=== PATIENT | male | born 1945 | race Caucasian/White ===

== ENCOUNTER 2016-06-04 11:43 | Observation (INO) | payer OTHER ==
--- NOTE | 2016-05-12 12:53 | PAT Medication Instructions ---
Service Date May 12, 2016. Current Home Medication List Aspirin (Aspirin Ec), 325 MG PO PRN Naproxen (Aleve), 440 MG PO QAM Medication Instructions For Your Scheduled Surgery - Hold the following medications 10 days prior to surgery per surgeon instructions: Aspirin (Aspirin Ec), 325 MG PO PRN Naproxen (Aleve), 440 MG PO QAM - Take the following medications the morning of surgery with a sip of water: Tylenol (if needed) - Take the following medications as scheduled the night before surgery: Tylenol (if needed) If you have any questions please call us at [phone] or [phone] ( [place]) or [phone]
[2016-05-12 13:16] LABS: BASO % 0.3 %; BASO ABS # 0.02 K/uL (0-0.2); COMPLETE YES; EOS % 4.3 %; HEMATOCRIT 44.4 % (42-52); IG% 0.1 %; LYMPH % 23.9 %; MEAN CELL VOLUME 90.8 fL (80-100); MEAN CORPUSCULAR HEMOGLOBIN 30.7 pg (25-34); MEAN CORPUSCULAR HGB CONC 33.8 g/dl (32-36); MEAN PLATELET VOLUME 10.1 fL (7.4-10.4); MONO % 8.1 %; NEUT % 63.3 %; PLATELET COUNT 244 K/uL (130-400); RED BLOOD COUNT 4.89 M/uL (4.7-6.1); WHITE BLOOD COUNT 7.95 K/uL (4.8-10.8)
[2016-05-12 13:42] LABS: PROTHROMBIN TIME (PATIENT) 10.2 SECONDS (9.0-12.0)
[2016-05-12 13:49] LABS: BUN/CREATININE RATIO 21.4 (10-20); CALCIUM 9.1 mg/dl (8.5-10.1); CREATININE 0.95 mg/dl (0.60-1.40); POTASSIUM 4.9 mmol/L (3.5-5.1)
--- NOTE | 2016-05-29 09:18 | HISTORY & PHYSICAL EXAMINATION ---
DATE OF ADMISSION: 06/04/2016 CHIEF COMPLAINT: Right ankle pain, discomfort and instability. HISTORY OF PRESENT ILLNESS: This 70-year-old gentleman has a 2- to 3-year history of increasing right ankle pain, discomfort and instability. No trauma and no history of trauma. It just gradually got worse over time. He has resorted to using a cane as a result. He describes global discomfort. It rolls on him regularly. He has tried some bracing but continues to give him problems. He now presents for surgical treatment. PAST MEDICAL HISTORY: Noncontributory. PREVIOUS SURGERIES: None. ALLERGIES: No known drug allergies. CURRENT MEDICINE: None. SOCIAL HISTORY: A 70-year-old male. He is from [place]. . Three children. Rare alcohol intake. FAMILY HISTORY: Heart disease and diabetes. REVIEW OF SYSTEMS: Negative for diabetes, neurologic problems, vascular problems, bleeding disorders. No chest pain, no shortness of breath. No evidence of DVT or PE. No history of neuropathy. PHYSICAL EXAMINATION: GENERAL: Reveals a healthy, pleasant middle-aged male. He looks to be in good health. HEENT: Benign. NECK: Supple. No lymphadenopathy. LUNGS: Clear to auscultation. HEART: Regular rate and rhythm. ABDOMEN: Soft, nontender, nondistended. EXTREMITIES: Grossly neurovascularly intact except as follows. Examination of the right ankle reveals the patient ambulates with the use of a cane. He steps on his leg and walks on it kind of like a pegleg with his knee straight. He has got varus alignment to his ankle. He can dorsiflex and plantarflex his foot slightly. He can dorsiflex to neutral, plantar flex to about 10 degrees. NEUROLOGIC: Intact. X-RAYS: X-rays of the ankle were reviewed. It shows a fixed varus deformity to his ankle. He has got complete loss of his medial joint space. He has got bony hypertrophy both medially and laterally. He has got some extra ossicles around his ankle joint. He does have some degenerative changes in the talonavicular joint. ASSESSMENT: A 70-year-old male with advanced right ankle degenerative joint disease. He has got a fixed varus deformity to his ankle. The etiology of this is unclear. He is not diabetic and no real signs of neuropathy. PLAN: We talked about treatment including injection and bracing. This has not really been effective for him and he would like to have this fixed. I think the most predictable operation for this gentleman is an ankle arthrodesis. We are going to take him to the operating room and do right ankle arthrodesis. The risks and benefits of this procedure were explained to the patient including but not limited to DVT, PE, , infection, neurological injury, vascular injury, bleeding problem, pain, limited range of motion, stiffness, failure to relieve symptoms, incomplete relief of symptoms, need for further surgery in the future, nonunion, malunion, etc. The patient understands and desires to proceed. Informed consent was obtained. We will keep him overnight for pain control. He will be nonweightbearing for 6 weeks and then weightbearing in a cast for 6 weeks. He did have preoperative workup. EKG was normal. Labs were all normal.
[~2016-06-04] VITALS: Ht 170.2 cm; Wt 88.1 kg
[2016-06-04] VITALS (7 sets, daily range): BP systolic 129–153; BP diastolic 79–95; PULSE 65–93; TEMP 36.4–36.7; O2SAT 94–99; Ht 170.2 cm; Wt 88.1 kg
[~2016-06-04 11:43] MED LIST: ACETAMINOPHEN 500 MG TAB PO SCH; ASPI325T39 PO; ATROPINE SULFATE 0.1 MG/ML 5ML SYR IV PRN; CEFAZOLIN 2000 MG/60 ML D5W 60 ML IV SCH; EpHEDrine SULFATE INJ 50 MG/ML AMP IV PRN; FENTANYL CITRATE INJ 50 MCG/1 ML 2 ML VIAL IV PRN; FENTANYL CITRATE INJ 50 MCG/1 ML 2 ML VIAL ONE; GABAPENTIN 300 MG CAP PO SCH; HYDROmorphone INJ 1 MG/ML SYR IV PRN; LACTATED RINGER'S 1000ML 1,000 ML IV SCH; LACTATED RINGER'S 1000ML IV SCH; MIDAZOLAM HCL 1 MG/ML 2ML VIAL ONE; NAPR1TAB9 PO; ONDANSETRON INJ 2 MG/ML 2 ML VIAL IV PRN; ROPIVACAINE 0.5% 5 MG/ML 30 ML VIAL ONE; SCOPOLAMINE 1.5 MG TDSY TD SCH
[2016-06-04] MEDS ORDERED: ACET325T96 PO (12:05)
--- NOTE | 2016-06-04 14:01 | History & Physical Bridge Note ---
H&P Re-Evaluation Bridge Note: I have examined the patient, reviewed the History & Physical and in the interval since the performance of the History & Physical I have noted the following changes of clinical significance: No changes noted
[2016-06-04] MEDS ORDERED: BUPIVACAINE/EPINEPHRINE 0.5% MPF 1:200,000 30 ML VIAL ONE (14:12)
[2016-06-04] MEDS ORDERED: PROPOFOL IV EMULSION 10 MG/ML 20 ML VIAL IV ONE ×2 (15:44→16:04)
[2016-06-04] MEDS ORDERED: LIDOCAINE HCL 2% 2 ML VIAL (20MG/ML) ONE (15:44)
[2016-06-04] MEDS ORDERED: GLYCOPYRROLATE INJ 0.2 MG/ML VIAL ONE (15:44)
[2016-06-04] MEDS ORDERED: FENTANYL CITRATE INJ 50 MCG/1 ML 2 ML VIAL ONE ×2 (15:44→15:58)
[2016-06-04] MEDS ORDERED: NEOSTIGMINE METHYLSULFATE 5 MG/5 ML SYR ONE (15:44)
[2016-06-04] MEDS ORDERED: ROCURONIUM BROMIDE 10 MG/ML 5 ML VIAL ONE (15:44)
[2016-06-04] MEDS ORDERED: ONDANSETRON INJ 2 MG/ML 2 ML VIAL ONE (15:44)
[2016-06-04] MEDS ORDERED: DEXAMETHASONE SOD INJ 4 MG/ML VIAL ONE (15:44)
--- NOTE | 2016-06-04 16:42 | DIAGNOSTIC IMAGING REPORT ---
Postoperative right ankle RIGHT ANKLE MIN 3 VIEWS ROUTINE CLINICAL HISTORY: RT ANKLE ARTHRODESIS Right TECHNIQUE: Image intensifier COMPARISON STUDY: None FINDINGS: Findings consistent with what appears to be an ankle fusion image intensifier evaluation. Pre-existing distracted fracture of the fibula. IMPRESSION: Distracted fracture fibula. Operative findings consistent with ankle fusion. Electronically signed by: Vijay Lam M.D. 06/04/2016 4:40 PM Dictated Date/Time: 06/04/2016 4:40 PM
--- NOTE | 2016-06-04 16:57 | [facility] Post Operative Brief Note ---
Immediate Operative Summary Operative Date Jun 04, 2016. Pre-Operative Diagnosis Advanced right ankle degenerative joint disease, fixed varus deformity to ankle Post-Operative Diagnosis Advanced right ankle degenerative joint disease, fixed varus deformity to ankle Procedure(s) Performed Right Ankle Arthrodesis Surgeon Dr. Michele Cortez Software Support Analyst Surgeon(s) Chet Singleton PA-C Estimated Blood Loss 30 mL Findings Right Ankle DJD Specimens None Anesthesia General Complication(s) None Disposition Recovery Room / PACU
[2016-06-04] MEDS ORDERED: ONDANSETRON INJ 2 MG/ML 2 ML VIAL IV PRN (17:00)
[2016-06-04] MEDS ORDERED: METOCLOPRAMIDE HCL INJ 5 MG/ML 2 ML VIAL IV PRN (17:00)
[2016-06-04] MEDS ORDERED: ZOLPIDEM TARTRATE 5 MG TAB PO PRN (17:00)
[2016-06-04] MEDS ORDERED: SOD PHOSPHATE/SOD BIPHOSPHATE ENEMA 132 ML BTL PR PRN (17:00)
[2016-06-04] MEDS ORDERED: OXYCODONE HCL IR 5 MG TAB (IMMEDIATE RELEASE) PO PRN (17:00)
[2016-06-04] MEDS ORDERED: MAGNESIUM HYDROXIDE SUSP 30 ML UDC PO PRN (17:00)
[2016-06-04] MEDS ORDERED: ASPIRIN 325 MG ECTAB PO SCH (17:00)
[2016-06-04] MEDS ORDERED: BISACODYL 10 MG SUPP PR PRN (17:00)
[2016-06-04] MEDS ORDERED: ALUMINUM/MAGNESIUM/SIMETH (MAALOX MAX) 30 ML UDC PO PRN (17:00)
[2016-06-04] MEDS ORDERED: DiphenhydrAMINE HCL 50 MG/ML VIAL IV PRN (17:00)
[2016-06-04] MEDS ORDERED: MoRPHine SULFATE 2 MG/ML CARP IV PRN (17:00)
[2016-06-04] MEDS ORDERED: NO NSAIDS SCH (17:00)
--- NOTE | 2016-06-04 17:58 | Anesthesiology Progress Note ---
Anesthesia Post Op Note Date & Time Jun 04, 2016 at 17:58 Vital Signs Pain Intensity: 0 Vital Signs Past 12 Hours Date Time Temp Pulse Resp B/P Pulse Ox O2 Delivery O2 Flow Rate FiO2 06/04/16 17:45 77 15 123/8 95 Nasal Cannula 2 06/04/16 17:30 36.3 75 21 129/84 95 Nasal Cannula 2 06/04/16 17:20 74 16 141/81 93 Nasal Cannula 2 06/04/16 17:10 75 15 136/78 98 Mask 10 06/04/16 17:00 78 15 136/78 97 Mask 10 06/04/16 16:53 36.5 79 10 151/77 96 Mask 10 06/04/16 12:06 36.7 88 18 141/95 96 Room Air Notes Mental Status: alert / awake / arousable, participated in evaluation Pt Amnestic to Procedure: Yes Nausea / Vomiting: adequately controlled Pain: adequately controlled Airway Patency, RR, SpO2: stable & adequate BP & HR: stable & adequate Hydration State: stable & adequate Anesthetic Complications: no major complications apparent
[2016-06-04] MEDS ORDERED: FERROUS GLUCONATE 324 MG TAB PO SCH (18:00)
[2016-06-04] MEDS ORDERED: IV FLUIDS COMPLETED PRN (18:15)
[2016-06-04] MEDS: CHECK SCOPOLAMINE PATCH PLACEMENT SCH (18:18)
[2016-06-04] MEDS: D5W AND 1/2NSS + 20MEQ KCL 1,000 ML IV SCH (19:16)
[2016-06-04] MEDS ORDERED: ASPEC325 PO (19:42)
[2016-06-04] MEDS ORDERED: OXYC-57 PO (19:42)
--- NOTE | 2016-06-04 19:44 | Discharge Instructions ---
Discharge Instructions Admission Reason for Admission: Right Ankle/Foot Osteoarthritis, Ankle Pain Discharge Discharge Diagnosis / Problem: Right Ankle Fusion Discharge Goals Goal(s): Decrease discomfort, Improve function, Increase independence, Improve disease control, Therapeutic intervention Activity Recommendations Activity Limitations: per Instructions/Follow-up section Weightbearing Status: Right non-weightbearing . Instructions / Follow-Up Instructions / Follow-Up Keep splint and dressing clean, dry, and in place Keep all weight off right leg/foot Elevate right leg as much as possible Current Hospital Diet Patient's current hospital diet: Regular Diet Discharge Diet Recommended Diet: Regular Diet Procedures Procedures Performed: Right Ankle Arthrodesis Pending Studies Studies pending at discharge: no Medical Emergencies . Who to Call and When: Medical Emergencies: If at any time you feel your situation is an emergency, please call 911 immediately. . Non-Emergent Contact Non-Emergency issues call your: Surgeon . "Provider Documentation" section prepared by Michele Cortez. VTE Core Measure Inpt VTE Proph given/why not?: Other Anticoagulation, T.E.D. Stockings, SCD's
[2016-06-04] MEDS ORDERED: PNEUMOCOCCAL POLYSACCHARIDES 25 MCG/0.5 ML VIAL/SYR IM. ONE (20:15)
[2016-06-04] MEDS ORDERED: PNEUMOCOCCAL ADMINISTRATION CHARGE ONE (20:15)
[2016-06-04] MEDS: ACETAMINOPHEN 500 MG TAB PO SCH (20:17)
[2016-06-04] MEDS: ASPIRIN 325 MG ECTAB PO SCH (20:18)
[2016-06-04] MEDS: CEFAZOLIN IV 2,000 MG in DEXTROSE 5% 50ML 50 ML IV SCH (22:00)
[2016-06-05] MEDS: CHECK SCOPOLAMINE PATCH PLACEMENT SCH ×2 (00:15→08:00)
[2016-06-05 02:57] VITALS: BP 115/75; PULSE 84; TEMP 36.6; O2SAT 97
--- NOTE | 2016-06-05 03:58 | OPERATIVE REPORT ---
DATE OF OPERATION: 06/04/2016 SURGEON: Michele Cortez MD PROGRAM ARRANGER: Cristhian Singleton PA-C PREOPERATIVE DIAGNOSIS: Right ankle degenerative joint disease. POSTOPERATIVE DIAGNOSIS: Same. PROCEDURE PERFORMED: Right ankle arthrodesis. COMPLICATIONS: None. ESTIMATED BLOOD LOSS: 30 mL. FLUID REPLACEMENT: 1700 mL crystalloid fluid replacement. TOURNIQUET TIME: 97 minutes. ANESTHESIA: General with popliteal block. OPERATIVE INDICATIONS: The patient is a 70-year-old gentleman who has had about a 2-3 year history of increased right ankle pain, discomfort and instability. Pain has become debilitating to the point where he has had to use an assistance device to get around. X-rays revealed advanced ankle degenerative joint disease with varus deformity to his talus. Treatment options were explained. He had failed conservative treatment and elected to proceed with arthrodesis. OPERATIVE IMPLANTS: Operative implants consisted of: 1. A Synthes 7.3 cannulated screws x2, one at 65 mm in length and one at 70 mm in length - long thread length. 2. A Synthes 6.5 cannulated screw of 70 mm length and a short thread length. 3. A Synthes washer. 4. A 4.0 partially threaded Synthes cancellous small fragment screws x2. OPERATIVE PROCEDURE: The patient was taken to the operating room, identified and placed on the operating table in supine position. All contact areas were appropriately padded. A popliteal block had been provided in the holding area. General anesthetic was implemented. The patient was then placed in the left lateral decubitus position. An axillary roll was placed. Beanbag positioner was used for positioning. All contact areas were meticulously padded. A right thigh tourniquet was then placed and the right lower extremity was then prepped and draped in the usual sterile fashion. A direct lateral approach to the fibula was then performed through a longitudinal and then slightly curvilinear incision about 15 cm in length total. This was carried out directly down to the fibula and then fibula was curved anteriorly towards the cuboid and fourth metatarsal base. Sharp dissection was carried out through the subcutaneous tissues directly down to the fibula. The fibula was skeletonized. The fibula was osteotomized 10 cm above the tip of the fibula and removed. This was then sectioned in half and the lateral portion was kept for a strut graft and the medial half was broken up for a bone graft. Some osteophytes were taken off the lateral aspect of the ankle area. I then opened the ankle joint out. I then curetted the articular surface of the talar dome as well as the distal tibial plafond and initially using a curette and then a bur. I then also used a 2.5 mm drill to create access holes through both the distal tibia as well as the talar dome. I was able to get over and even curette out some of the medial malleolus. I was able to get a nice reduction in appropriate position and therefore, I did not make a medial exposure. I did not think this was necessary based on his bone contact and the position of the ankle. The ankle was then irrigated extensively. I then held it reduced with a goal of placing this in about 5 degrees of valgus, 5 degrees of external rotation and a fairly neutral dorsiflexion. I then fixed it with 2 wires going through lateral process of the talus into the posterior aspect of the tibia and into the talar neck. I then made a stab incision just lateral to the Achilles tendon several centimeters above the ankle joint and then angled a guidewire through the posterior tibia into the talus and into the talar neck. I verified the position of this. I then placed a 65 mm long threaded 7.3 cannulated screw with a washer over this guidewire. This provided excellent fixation. I then placed a 7.3 partially long threaded screw over the anterior guidewire into the talar neck into the anterior tibia and then a 6.5 cannulated screw over the posterior guidewire. This provided excellent fixation. The talus was well approximated to the tibia. I then irrigated the wound extensively. I did place some bone graft was in the anterior aspect of the tibia. I then fixed the lateral fibula strut to the lateral ankle with a two 4.0 partially threaded cancellous screws. The final x-rays were obtained. Attention was then drawn toward closing. The wound was irrigated with copious amounts of normal saline. I did close the deep fascia over the ankle with 2-0 Vicryl suture in a [id number] fashion. The tourniquet was then let down for a tourniquet time of 97 minutes. Hemostasis was assured with use of electrocautery. The subcutaneous tissues were then closed with 2-0 Dexon suture in a buried interrupted fashion. Skin was closed with 3-0 nylon suture in a horizontal mattress fashion. The ankle was then cleaned and dried and a sterile dressing of Xeroform, 4 x 4, sterile cast padding and a well-padded posterior and stirrup splint were applied. The patient then brought out of general anesthesia and transferred to the recovery room in stable condition. The patient tolerated the procedure well with no complications. All needle and sponge counts were correct at the end of the operation. I attest to the content of the Intraoperative Record and any orders documented therein. Any exceptions are noted below. MTDD
[2016-06-05] MEDS: D5W AND 1/2NSS + 20MEQ KCL 1,000 ML IV SCH (05:19)
[2016-06-05] MEDS: CEFAZOLIN IV 2,000 MG in DEXTROSE 5% 50ML 50 ML IV SCH (05:19)
[2016-06-05] MEDS: ACETAMINOPHEN 500 MG TAB PO SCH (05:20)
[2016-06-05 07:00] VITALS: BP 122/78; PULSE 67; TEMP 36.7; O2SAT 97
--- NOTE | 2016-06-05 07:46 | PROGRESS NOTE ---
DATE: 06/05/2016 SUBJECTIVE: Mr. Norris is a 70-year-old male who is now postoperative day #1 from right ankle arthrodesis. He is doing pretty well this morning. Pain is controlled. He is having some difficulty moving his toes still at this point. No other complaints at this time. No chest pain or shortness of breath. OBJECTIVE: GENERAL: He is alert and oriented, no distress. VITAL SIGNS: Have been stable. EXTREMITIES: Examination of the right lower extremity splint is clean, dry and intact. He has brisk refill. He is having difficulty moving his toes. ASSESSMENT: Postoperative day #1 from right ankle arthrodesis. PLAN: We will get him physical therapy this morning to help him with transfers and as far as moving around. He will be nonweightbearing to the right lower extremity. His pain is controlled at this point. He does have Percocet written for pain. He will continue GIULIANA stockings, SCDs and aspirin for DVT prophylaxis. Plan on discharge home today after physical therapy. He does have a walker at home. We are writing for a wheelchair as well. We will follow up in approximately 2 weeks.
[2016-06-05] MEDS: ASPIRIN 325 MG ECTAB PO SCH (08:36)
[2016-06-05] MEDS ORDERED: MULTIVITAMIN TAB PO SCH (09:00)
[2016-06-05] MEDS ORDERED: PANTOprazole SOD 40 MG TAB PO SCH (09:00)
[2016-06-05 10:15] VITALS: BP 122/78; PULSE 67; TEMP 36.7; O2SAT 97
--- NOTE | 2016-06-11 14:22 | DISCHARGE SUMMARY ---
ADMITTING PHYSICIAN AND SURGEON: Dr. Cortez. ADMITTING DIAGNOSIS: Right ankle degenerative joint disease. SURGERY PERFORMED: Right ankle arthrodesis. SECONDARY DIAGNOSES: Noncontributory. CONSULTS: None obtained. HOSPITAL COURSE: The patient was admitted on 06/04/2016 underwent ankle arthrodesis, tolerated the procedure well. There were no complications. He was transferred to the PACU postoperatively and later to the orthopedic floor for further care. He was given Ancef for antibiotic prophylaxis, GIULIANA stockings, SCDs and aspirin for DVT prophylaxis. Vital signs were monitored during his hospital stay and remained stable. There were no complications. By postoperative day 1, he was tolerating a general diet, pain was controlled with oral pain medicine. He was participating in physical therapy and had no signs or symptoms of deep vein thrombosis. On postop day 1, he was discharged home. He was given printed discharge instructions and new prescriptions for aspirin 325 mg b.i.d., Percocet. Continue his home medications with the exception of his home dose of aspirin which was changed. He was given instructions to leave his dressing and splint clean, dry and intact. He is to be nonweightbearing to the right lower extremity, elevate his right leg as much as possible. He will follow up with Dr. Cortez in approximately 2 weeks postop or sooner if there are problems or concerns.
== END 2016-06-05 11:17 | disposition home or self-care (01) ==
LOC: ENRESERVDT → ENRESERVTM → C.ACU 11:43 → C.3E 17:02
PROVIDERS: ADMIT Orthopaedic Surgery Sports Medicine; ATTEND Orthopaedic Surgery Sports Medicine
DX: M19.071 Primary osteoarthritis, right ankle and foot (principal); Z83.3 Family history of diabetes mellitus; Z82.49 Family history of ischemic heart disease and other diseases of the circulatory system; Z01.818 Encounter for other preprocedural examination